=== PATIENT | female | born 1955 | race Caucasian/White ===

== ENCOUNTER → 2017-11-07 | Outpatient (CLI) | payer OTHER ==
[~2017-11-07] MED LIST: BIOT5000 PO; CALC600T63 PO; CEPH500T7 PO; CHOL10005 PO; FLAX1CAP4 PO; HYDR-385 PO; LUTE20TA PO; hormone pellets IL
--- NOTE | 2017-11-07 14:56 | RADIOLOGY IMAGING REPORT ---
FACILITY: [facility] PATIENT NAME: Alexandra Villasenor : 1955 MR: [id number] V: [id number] EXAM DATE: ORDERING PHYSICIAN: LUL FINCH TECHNOLOGIST: Location: [facility] - [place] Patient: Alexandra Villasenor : 1955 Visit/Account:[id number] Date of Sevice: 11/07/2017 DEXA Scan Clinical history: Osteoporosis. Comparison: DEXA scan from 11/01/2016. LUMBAR SPINE: The bone mineral density (BMD) measured from L1-L4 correlates with a Z-score of 0.1 and a T-score of -1.0 which is Normal as defined by the World Health Organization. The corresponding risk of fracture in the lumbar spine is 2 times increased compared with a young adult reference population. This nayeli ue has decrease by 1.2 % since the prior study. More than 5% change is considered significant. HIP: Bone mineral density (BMD) measured in the LEFT total hip region correlates with a Z-score -0.2 and a T-score of -1.1 which is osteopenia as defined by the World Health Organization. The corresponding risk of fracture in the hip is 2-3 times increased compared to a young adult reference population. Th is value has increase by 0.3 % since the prior study. More than 5% change is considered significant. T score left femoral neck -1.5 Bone mineral density (BMD) measured in the Femoral Neck region measures 0.835 g/cm?. IMPRESSION: 1. Lumbar spine: Normal. There has been 1.2% decrease in the bone mineral density since the previou s exam. 2. Left Total Hip: Osteopenia. There has been 0.3% increase in the bone mineral density since the p revious exam. 3. Femoral Neck: Bone Mineral Density is 0.835 g/cm? The next DEXA scan of this patient should include the following sites: L1-L4 and the left hip. FRAX? WHO Fracture Risk Assessment Tool link: <http://www.shef.ac.uk/FRAX/tool.jsp?locationValue=9> PLEASE NOTE: 1) The World Health Organization defines low BMD as follows: T-score Normal > -1 Osteopenia < -1 and > -2.5 Osteoporosis < -2.5 without fractures Established osteoporosis < -2.5 with fractures 2) In general, you may wish to consider: Diagnosis Treatment Follow-up DEXA Normal BMD Prevention 2-3 years Osteopenia Prevention/therapy 1-2 years Osteoporosis Therapy Yearly 3) Fracture risk estimated from the T-score is more accurate for vertebral fractures (often spontane ous) than for hip fractures. Report Dictated By: Mary Jo Lomas MD at 11/07/2017 2:51 PM Report E-Signed By: Mary Jo Lomas MD at 11/07/2017 2:52 PM WSN:[email or web address]
--- NOTE | 2017-11-08 10:27 | RADIOLOGY IMAGING REPORT ---
FACILITY: [facility] - [place] PATIENT NAME: DONTRELL MCKNIGHT : [id number] MR: [id number] V: [id number] EXAM DATE: ORDERING PHYSICIAN: LUL FINCH TECHNOLOGIST: Renetta Farrell PROCEDURE:BILATERAL DIGITAL SCREENING MAMMOGRAM WITH CAD ASSISTED INTERPRETATION & 3D TOMOSYNTHESIS COMPARISON:Prior mammograms 12/09/14, 12/01/13, 10/29/12, 10/16/11 INDICATIONS:SCREENING FINDINGS: Moderately heterogeneous fibroglandular tissue is seen throughout the breasts. The parenchymal pattern has remained stable allowing for difference in mammographic technique & patient positioning. There is no evidence of malignant appearing mass, malignant appearing calcifications or other secondary sign of malignancy in either breast. DIAGNOSTIC CATEGORY 2--BENIGN FINDING. RECOMMENDATIONS: ROUTINE MAMMOGRAM AND CLINICAL EVALUATION. IMPRESSION: BIRADS 2: Benign finding No significant abnormality is seen Dictated by: Mary Jo Lomas M.D. on 11/07/2017 at 15:47 Transcribed by: KOFFI on 11/07/2017 at 16:00 Approved by: Mary Jo Lomas M.D. on 11/08/2017 at 10:26 [facility]
== END ==
LOC: MAMO 02:04
PROVIDERS: ATTEND Nurse Practitioner Family
DX: Z13.820 Encounter for screening for osteoporosis (principal); Z12.31 Encounter for screening mammogram for malignant neoplasm of breast; M85.88 Other specified disorders of bone density and structure, other site; M93.90 Osteochondropathy, unspecified of unspecified site; M81.0 Age-related osteoporosis without current pathological fracture; N95.1 Menopausal and female climacteric states
CPT/HCPCS: 36415; 77063; 77067; 77080; 82306; 82607; 82670

== ENCOUNTER → 2017-11-07 | Outpatient (REF) ==
[2017-11-07 12:49] LABS: LDL CHOLESTEROL 78 mg/dl
== END ==
DX: Z02.9 Encounter for administrative examinations, unspecified (principal)

== ENCOUNTER → 2017-11-21 | Outpatient (CLI) | payer OTHER | LOC: LAB 16:04 | PROVIDERS: ATTEND Nurse Practitioner Family | DX: R14.0 Abdominal distension (gaseous) (principal) | CPT/HCPCS: 36415; 82784 ==

== ENCOUNTER → 2018-08-02 | Outpatient (CLI) | payer OTHER ==
[~2018-08-02] MED LIST changes: +ASCO-182 PO; +CALC600T82 PO; +CHOL100058 PO; +CYAN25004 PO; +FLAX100053 PO; +[UNRECOGNIZED DRUG - CODE] PO
--- NOTE | 2018-08-02 11:32 | RADIOLOGY IMAGING REPORT ---
FACILITY: [facility] PATIENT NAME: Alexandra Villasenor : 1955 MR: [id number] V: [id number] EXAM DATE: ORDERING PHYSICIAN: EM NARVAEZ TECHNOLOGIST: Location: [facility] Patient: Alexandra Villasenor : 1955 Visit/Account:[id number] Date of Sevice: 08/02/2018 FOOT 2 VIEW RIGHT Indication: Joint pain and swelling right foot third PIP joint. Comparison: None Findings: The phalanges, metatarsal, and tarsal bones are intact. Joint spaces are normal. There is mild soft tissue swelling at the PIP joint of the third toe. IMPRESSION: 1. No evidence of fracture or degenerative change. 2. Soft tissue swelling at the PIP joint of the third toe. Report Dictated By: Martin Jimenez at 08/02/2018 11:27 AM Report E-Signed By: Martin Jimenez at 08/02/2018 11:28 AM WSN:[email or web address]
== END ==
LOC: RAD 09:04
PROVIDERS: ATTEND Chiropractor
DX: M79.674 Pain in right toe(s) (principal); R22.41 Localized swelling, mass and lump, right lower limb

== ENCOUNTER → 2018-11-25 | Outpatient (REF) ==
[2018-11-25 13:12] LABS: LDL CHOLESTEROL 78 mg/dl
== END ==
DX: Z02.9 Encounter for administrative examinations, unspecified (principal)

== ENCOUNTER → 2018-11-25 | Outpatient (CLI) | payer OTHER ==
--- NOTE | 2018-11-26 10:48 | RADIOLOGY IMAGING REPORT ---
FACILITY: [facility] - [place] PATIENT NAME: DONTRELL MCKNIGHT : [id number] MR: [id number] V: [id number] EXAM DATE: [id number] ORDERING PHYSICIAN: LUL FINCH TECHNOLOGIST: Renetta Farrell PROCEDURE:BILATERAL DIGITAL SCREENING MAMMOGRAM WITH CAD ASSISTED INTERPRETATION & 3D TOMOSYNTHESIS COMPARISON:Prior mammograms 11/07/17, 11/01/16, 12/09/14, 12/01/13, 10/29/12. INDICATIONS:SCREENING FINDINGS: The breasts are heterogeneously dense which can obscure small masses. The parenchymal pattern has remained stable allowing for difference in mammographic technique & patient positioning. DIAGNOSTIC CATEGORY 1--NEGATIVE. RECOMMENDATIONS: ROUTINE MAMMOGRAM AND CLINICAL EVALUATION. IMPRESSION: BIRADS 1: Negative. No significant abnormality is seen. Dictated by: Mary Jo Lomas M.D. on 11/26/2018 at 8:32 Transcribed by: KOFFI on 11/26/2018 at 8:45 Approved by: Mary Jo Lomas M.D. on 11/26/2018 at 10:46 [facility]
== END ==
LOC: MAMO 00:47
PROVIDERS: ATTEND Nurse Practitioner Family
DX: Z12.31 Encounter for screening mammogram for malignant neoplasm of breast (principal); Z80.3 Family history of malignant neoplasm of breast
CPT/HCPCS: 77063; 77067

== ENCOUNTER → 2018-11-25 | Outpatient (CLI) | payer OTHER | LOC: LAB 11:43 | PROVIDERS: ATTEND Nurse Practitioner Family | DX: E55.9 Vitamin D deficiency, unspecified (principal); E53.8 Deficiency of other specified B group vitamins | CPT/HCPCS: 82306; 82607 ==

== ENCOUNTER → 2019-01-29 | Outpatient (CLI) | payer OTHER ==
--- NOTE | 2019-01-29 09:41 | RADIOLOGY IMAGING REPORT ---
FACILITY: [facility] [place] PATIENT NAME: Alexandra Villasenor : 1955 MR: [id number] V: [id number] EXAM DATE: ORDERING PHYSICIAN: ELENA GOMES TECHNOLOGIST: Location: [facility] - [place] Patient: Alexandra Villasenor : 1955 Visit/Account:[id number] Date of Sevice: 01/29/2019 MRI right foot Indication: Third toe pain. Evaluate for metatarsal stress fracture. Comparison: Plain films dated 08/02/2018 are reviewed. Technique: Multiplanar, multisequence MRI examination is performed of the right foot without contrast . Findings: With respect to the metatarsals, there is no evidence to suggest metatarsal stress fracture or stress reaction. The bases of the fourth and fifth metatarsals are not included in the [id number] which is centered on the metatarsophalangeal joints. 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 There is a joint effusion present. Degenerative changes are seen between the biparti te medial sesamoid and the plantar surface of the first metatarsal head. Subchondral edema-like signa l is seen within the first metatarsal head in this location. Minimal degenerative changes seen at the second metatarsophalangeal joint. The remaining metatarsophalangeal joints are normal. The phalanges of the great toe and interphalangeal joint are normal. With respect to the third toe, there is nonspecific edema identified within the distal phalanx. This is seen in multiple planes of imaging. Correlate clinically. This could reflect a bone contusion in t he appropriate setting. If there is a soft tissue wound, possibility of osteomyelitis should be consi dered. There is a focal round area of bright T2 and intermediate T1 signal seen along the medial uday in of the DIP joint of the third toe. This measures 4 mm in size. This is indeterminant. Uncertain if this is related to a thickened joint capsule or possibly an area of joint extension. Correlate clini jaren. A small ganglion cyst would also be the differential. IMPRESSION: 1. No evidence of right foot metatarsal stress reaction or stress fracture. 2. Abnormal marrow edema within the distal phalanx of the third toe. Correlate clinically. Differenti al would include a bone contusion if there is been recent trauma. If there is a soft tissue wound in this region, possibility of osteomyelitis should be considered. 3. Rounded area of intermediate T1 and bright T2 signal overlying the medial margin of the third toe DIP joint. This may be related to a capsular injury in the setting of trauma. Differential would also include a joint extension or a ganglion cyst. A solid lesion is felt to be less likely. Correlate wi th physical exam. Report Dictated By: Raphael Bravo at 01/29/2019 9:14 AM Report E-Signed By: Raphael Bravo at 01/29/2019 9:37 AM WSN:[email or web address]
== END ==
LOC: MRI 00:43
PROVIDERS: ATTEND Orthopaedic Surgery
DX: M79.671 Pain in right foot (principal)